=== PATIENT | female | born 2005 | race African-American/Black ===

== ENCOUNTER 2025-02-03 17:02 | Emergency (ER) | payer OTHER, SELFPAY ==
[2025-02-03 17:30] VITALS: BP 103/59; PULSE 76; RESP 18; TEMP 37; O2SAT 97; BMI 28.1
--- NOTE | 2025-02-03 17:47 | ED_ITS ---
HPI - Abdominal Pain General Chief Complaint: Abdominal Pain Stated Complaint: Abdominal Pain Time Seen by Provider: 02/03/25 17:47 History of Present Illness HPI narrative: patient started to have pain in the RLQ and last Sunday. then went into in [place] and then went to ED had blood test and imaging. Found some swelling and small cysts unsure what called. concerned of appy wants a second opinion. hard to walk and some radiation of the pain into the lower back. was given Oxycodone for pain and last taken yesterday and today taken Motrin with no relief of pain. had diarrhea x2 each day last on Sunday and none since. 19-year-old young woman presenting to the emergency department with concern of lower right abdominal pain. Apparently was seen 6 and 7 days ago in ED in urgent care in the area. Had blood work and CT scan and what sounds like pelvic ultrasound. She continues to have pain in the right lower abdomen. Did have diarrhea couple of times 8 days ago which she suspects might be related to dairy. She think she has developed dairy allergy. She has vomited intermittently with continued nausea over this last week. Did vomit yesterday when she tried to eat something but none since. Has not had any fever. It is unclear after conversation what actual diagnosis was but this described as some swelling but not quite appendicitis. Mesenteric adenitis is not familiar. Sounds like may have had a small ovarian cyst. She also notes history of ir regular menses but had her last. At the end of December finishing on the and then bled after her 2nd visit this last week but did want to go back in and be told once again that there was nothing to do. This was unusually heavy bleeding and resolved yesterday or 2 days ago but has been spotting a little bit. No fever. Is experiencing some frequency which she would blame on the fluids that she has been pushing. Denies being sexually active. Related Data Previous Rx's ?Medication ?Instructions ?Recorded hydrocodone 5 mg-acetaminophen 325 1 - 2 tab PO TID DE N pain, 02/03/25 mg tablet moderate #15 tabs ondansetron HCl 4 mg tablet 4 mg PO Q6H PRN nausea and 02/03/25 vomiting #12 tabs Allergies Allergy/AdvReac Type Severity Reaction Status Date / Time honey Allergy Intermediate Verified 02/03/25 17:46 sugar cookies with frosting Allergy Intermediate Uncoded 02/03/25 17:46 Review of Systems Status of ROS Reports: 6 or more systems reviewed and unremarkable except as noted in History and below Exam Narrative: Exam Narrative: Pleasant. Mouth looks little dry. She does say she has been pushing fluids. Heart in regular rate and rhythm. Lungs are clear. She is sore to palpation in the low back, right greater than SI joint in particular. Abdomen is soft and moderately tender without peritoneal signs in the right adnexal/low abdomen. Lungs are clear. Does continue with some pain across the low pelvis/suprapubic area however. Extremities are without edema. Const: Vital Signs, click to edit/add: Vital Signs - 24 hr 02/03/25 17:30 Temperature 98.6 F Pulse Rate [Pulse Oximeter] 76 Respiratory Rate 18 Blood Pressure [Ri ght Upper Arm] 103/59 L Pulse Oximetry 97 Oxygen Delivery Me thod Room Air Documenting provider has reviewed patient's vital signs: yes Course Vital Signs Vital signs: Initial Vital Signs Temperature 98.6 F 02/03/25 17:30 Temperature Source Temporal Artery Scan 02/03/25 17:30 Pulse Rate 76 02/03/25 17:30 Respiratory Rate 18 02/03/25 17:30 Blood Pressure 103/59 L 02/03/25 17:30 Blood Pressure Mean 73 02/03/25 17:30 Blood Pressure Position Sitting 02/03/25 17:30 Pulse Oximetry 97 02/03/25 17:30 Oxygen Delivery Method Room Air 02/03/25 17:30 Vital Signs Temperature 98.6 F 02/03/25 17:30 Pulse Rate 76 02/03/25 17:30 Respiratory Rate 18 02/03/25 17:30 Blood Pressure 103/59 L 02/03/25 17:30 Pulse Oximetry 97 02/03/25 17:30 Oxygen Delivery Method Room Air 02/03/25 17:30 Temperature 98.6 F 02/03/25 17:30 Pulse Rate 76 02/03/25 17:30 Respiratory Rate 18 02/03/25 17:30 Blood Pressure 103/59 L 02/03/25 17:30 Pulse Oximetry 97 02/03/25 17:30 Oxygen Delivery Method Room Air 02/03/25 17:30 Medications Administered Medications: Discontinued Medications Generic Name Dose Route Start Last Admin Trade Name Freq PRN Reason Stop Dose Admin Sodium Chloride 1,000 mls @ 1,000 mls/hr 02/03/25 18:14 02/03/25 19:03 0.9 % Sodium Chloride 1000 Ml IV 02/03/25 19:13 Not Given .Q1H ONE Ketorolac Tromethamine 30 mg 02/03/25 18:14 02/03/25 19:03 Ketorolac 30 Mg/Ml Inj IVP 02/03/25 18:15 Not Given ONCE ONE Ketorolac Tromethamine 10 mg 02/03/25 18:45 02/03/25 19:02 Ketorolac 10 Mg Tablet PO 02/03/25 18:46 10 mg ONCE ONE Administration Ondansetron HCl 4 mg 02/03/25 18:14 02/03/25 19:03 Ondansetron 2 Mg/Ml Inj IVP 02/03/25 18:15 Not Given ONCE ONE Ondansetron HCl 4 mg 02/03/25 18:45 02/03/25 19:02 Ondansetron Odt 4 Mg Tab PO 02/03/25 18:46 4 mg ONCE ONE Administration MDM - Abdominal Pain MDM Narrative Medical decision making narrative: Initially diagnosis seems unclear. Whether not this was an ovarian cyst or diverticulitis or constipation or enteritis with story otherwise inconsistent I think for appendicitis, we were able to obtain records from area emergency department. Reviewing this imaging able to confirm mesenteric adenitis. In addition it appears she does have sacroiliac joint area pain today. Not sure that further imaging is needed. Would check standard labs for reason to workup further. She would also appreciate IV fluids and some pain management. Obtain records show that on 01/27/2025 did have unremarkable pelvic ultrasound. And CT scan of abdomen pelvis with IV contrast showing a mild right lower quadrant mesenteric adenitis. I think this diagnosis is not inconsistent with her presentation here today as well. I did spend some time in conversation trying to explain, clarifies this diagnosis and expectations for timing of resolution, concerning signs and symptoms. Is given normal saline, Zofran and ketorolac. On reassessment is significantly improved. Stable vitals. Reassuring labs. See patient discharge plan for further discussion Continue to stay well-hydrated. I am prescribing you some [place] for pain as discussed. Each tablet contain 5 mg of hydrocodone and 325 mg of acetaminophen (unfortunately this is not available in our [facility] and so I have sent this into your pharmacy) Also prescribing Zofran for nausea from [facility]. Consider taking 400-600 mg of ibuprofen 3 times daily, regularly over the next 4 days or so. Be seen for uncontrolled pain, new fever, pain lasting longer than 12 days or so. See handout for exercises that you can work on daily for this sacroiliac joint pain. I would discuss this with physical therapy. Also lidocaine patches can be helpful placed over this area of discomfort in your back. Medical Records Attestation: I reviewed the patient's medical records. Lab Data Attestation: I reviewed the patient's lab results. Labs: Lab Results 02/03/25 02/03/25 02/03/25 Range/Units 17:49 17:50 18:52 WBC 6.45 (4.50-11.00) K/uL RBC 5.01 (4.00-5.20) m/uL Hgb 13.7 (12.0-16.0) gm/dL Hct 40.3 (33.0-51.0) % MCV 80 (80-100) fL MCH 27 (26-34) pg MCHC 34 (32-36) gm/dL RDW Coeff of [place] 13.1 (11.5-15.5) % Plt Count 296 (140-440) K/uL Neut % (Auto) 45.8 (42.0-72.0) % Lymph % (Auto) 44.2 H (20-44) % [place] % (Auto) 8.7 (0.0-11.0) % Eos % (Auto) 0.8 (0.0-7.0) % Baso % (Auto) 0.3 (0.0-3.0) % Neut # (Auto) 2.96 (1.7-7.0) K/uL Lymph # (Auto) 2.90 (0.90-2.90) K/uL [place] # (Auto) 0.60 (0.00-0.90) K/UL Eos # (Auto) 0.05 (0.00-0.50) K/uL Baso # (Auto) 0.02 (0.00-0.30) K/uL Abs Immat Gran (auto) 0.01 (0.00-0.30) K/uL Imm/Tot Granulo (auto) 0.2 % C-Reactive Protein < 0.5 L (0.5-1.0) mg/dL Urine Color Yellow (Yellow) Urine Appearance Clear (Clear) Urine pH 6.0 (5.0-8.5) Ur Specific [place] 1.020 (1.000-1.030) Urine Protein Negative (Negative) Urine Glucose (UA) Negative (Negative) Urine Ketones 1+ A (Negative) Urine Blood Trace-lysed A (Negative) Urine Nitrite Negative (Negative) Urine Bilirubin Negative (Negative) Urine Urobilinogen 0.2 (0.2-1.0) Ur Leukocyte Esterase Trace A (Negative) Urine HCG, Qual Negative (Negative) Discharge Plan Discharge Clinical Impression: Abdominal pain, Mesenteric adenitis, Sacroiliac joint pain Patient Disposition: Home, Self-Care Condition: Improved Instructions: Mesenteric Adenitis (ED) Additional Instructions: Continue to stay well-hydrated. I am prescribing you some [place] for pain as discussed. Each tablet contain 5 mg of hydrocodone and 325 mg of acetaminophen (unfortunately this is not available in our [facility] and so I have sent this into your pharmacy) Also prescribing Zofran for nausea from [facility]. Consider taking 400-600 mg of ibuprofen 3 times daily, regularly over the next 4 days or so. Be seen for uncontrolled pain, new fever, pain lasting longer than 12 days or so. See handout for exercises that you can work on daily for this sacroiliac joint pain. I would discuss this with physical therapy. Also lidocaine patches can be helpful placed over this area of discomfort in your back. Prescriptions: New hydrocodone-acetaminophen 5-325 mg tablet 1 - 2 tab PO TID PRN (Reason: pain, moderate) Qty: 15 0RF ondansetron HCl 4 mg tablet 4 mg PO Q6H PRN (Reason: nausea and vomiting) Qty: 12 1RF Follow Up/Referrals: Provider,Not a Local [Primary Care Provider, Family Practice] Stand Alone Forms: MyHealth Info Instructions
[2025-02-03 18:10] LABS: Appearance Urine Clear (Clear)
--- OUTSIDE RECORDS SUMMARY | 2025-02-03 18:28 | XMS_ITS | Clinical Summary ---
Author Organization [facility] Address [address] [place] [id number] Care Team Providers Care Yard Spotter Name Role Phone Mikayla Stubbs NP Primary Care Provider Allergies Active AllergyReactionsCriticalityNoted DateCommentsHoneyRash,Throat Swelling/GepodkuOptd06/13/2024Unlisted Allergen (Include Detail In Comments)Rash 07/11/2018 Mee; iced sugar cookies (swelling of lips and eyes) Medications MedicationSigDispense QuantityRefillsLast FilledStart DateEnd DateStatus Differin 0.3 % topical gel APPLY A THIN LAYER TO FACE TWICE WEEKLY INCREASING TO EVERY OTHER NIGHT TOLERATED. FOLLOW WITH GENTLE UHFCAQKCMJB01/31/2022ctive clindamycin 1% (CLEOCIN-T) 1 % lotion APPLY THIN LAYER TO AFFECTED AREA ON BODY 1-2X DAILY01/06/2022ctive sulfacetamide-sulfur , 10 - 5%, (SULFACET-R) 10-5 % (w/w) clsr WASH TO AFFECTED AREA OF BODY ONCE DAILY LATHER AND LET SIT FOR SEVERAL MINUTES BEFORE NZCMCGR5201/06/2022ctive ketoconazole 2% shampoo (NIZORAL) 2 % shampoo WASH TO AFFECTED AREA ON SCALP AND FACE 2-3 TIMES WEEKLY IN THE SHOWER LATHER AND LET SIT FOR SEVERAL MINUTES BEFORE UIOQOAP4101/06/2022ctive azelaic acid (FINACEA) 15 % topical gel APPLY A THIN LAYER TO FACE 1-2 TIMES DAILY IN THE OGJRYUT7301/09/2023ctive doxycycline monohydrate (MONODOX) 100 mg capsule TAKE 1 CAPSULE BY MOUTH TWICE DAILY WITH FOOD, WATER & SUPPLEMENT WITH A YYSUWGMYS52/28/2023Active omeprazole (PRILOSEC) 20 mg Delayed-Release capsule Indications:Chronic GERDTake 1 Capsule (20 mg) by mouth once daily before a meal. 30 Capsule 4:53 PM CST01/23/2023ctive omeprazole (PRILOSEC) 20 mg Delayed-Release capsule Indications:H. pylori infectionTake 1 Capsule (20 mg) by mouth two times daily before meals. 60 Capsule 04/02/2023 11:47 AM CST03/12/2023ctive hydrOXYzine HCL (ATARAX) 25 mg tablet Indications:AnxietyTake 1-2 Tablets (25-50 mg) by mouth 3 times daily if needed for Anxiety. 30 Tablet 08/06/2023ctive ondansetron (ZOFRAN ODT) 4 mg disintegrating tablet Indications:Nausea and vomiting, unspecified vomiting typePlace 2 Tablets (8 mg) on the tongue two times daily. 12 Tablet 12/26/2023ctive diphenhydrAMINE 25 mg capsule Indications:Allergic reaction, initial encounterTake 2 Capsules (50 mg) by mouth every 4 hours. 30 Capsule 5Active famotidine 40 mg tablet Indications:Allergic reaction, initial encounterTake 1 Tablet (40 mg) by mouth once daily. 14 Tablet 5Active rx oxyCODONE 5 mg (ROXICODONE) tablet (ED DC MED) Indications:Mesenteric adenitisTake 1 Tablet (5 mg) by mouth every 6 hours if needed for Pain. 4 Tablet 5Active oxyCODONE (ROXICODONE) 5 mg immediate release tablet Indications:Mesenteric adenitisTake 1 Tablet (5 mg) by mouth every 4 hours if needed for Pain. 10 Tablet 5Active Active Problems ProblemNoted DateDiagnosed DateChondromalacia patellae of right knee02/19/2023 Right patellar subluxation, initial gsoeaemxc55/08/2024dolescent idiopathic scoliosis of thoracolumbar nggqpp5101/29/2018 Overview (01/29/2018): Recommend recheck xray in 6 months 07/2018 Chronic GERD01/28/2018Macromastia Encounters DateTypeDepartmentCare LqsxGorstwfofva74/17/2025 4:48 PM DIRECTOR LEARNING AND DEVELOPMENT - 01/28/2025 5:17 PM CSTEmergency [facility] [address] [place] [address] Destin Newman MD Mesenteric adenitis (Primary Dx) Discharge Disposition: Home Self Care01/28/20256659Olmylp93/16/2025 5:26 PM DIRECTOR LEARNING AND DEVELOPMENT - 01/27/2025 8:29 PM CSTEmergency [facility] [address] [place] [address] Denia Ahmadi PA Mesenteric adenitis (Primary Dx) Discharge Disposition: Home Self Care01/27/2025 4:25 PM CSTOffice Visit [facility] [address] [place] [address] Jayda Holguin NP Abdominal Pain01/27/2025Travelfrom Last 3 Months Immunizations ImmunizationAdministration DatesNext DueCOVID-19 VACCINE SPIKEVAX (MODERNA 50MCG/0.5ML) 12YO+ PFS4COVID-19 vaccine (Pfizer-BioNTech 30mcg/0.3mL) PF, MDV10/29/2020,10/08/2020HPV 9 (Gardasil 9)01/14/2018,07/28/2016Hepatitis A (Peds)01/03/2021,03/29/2020Hepatitis B (Peds)08/23/2015,02/15/2015,11/03/2014 Inactivated Polio Bojyfzv7608/23/2015,11/03/2014Influenza, RON237/, 12/15/2019,11/07/2018,01/14/2018,02/16/2016,11/03/2014MENINGOCOCCAL VACCINE 2 VIAL 2MO-55YO (MENVEO)12/15/2019,11/03/2014MMR02/15/2015,10/20/2014Oral Polio Cgwgvtl4901/26/2014Td (Age >=7 Years)08/23/2015,02/15/2015Tdap10/20/2014Varicella Aghrqfp6502/15/2015,10/20/2014 Family History Medical HistoryRelationNameCommentsGood HealthFatherDiabetesMotherHeart attack Mother03/2022HypertensionMotherGood HealthSister 1Good HealthSister 2RelationName StatusCommentsFatherAliveMotherAliveSister 1AliveSister 2Alive Social History Tobacco UseTypesPacks/DayYears UsedDateSmoking Tobacco: NeverSmokeless Tobacco: Never Tobacco Cessation:Counseling Given: Yes Alcohol UseStandard Drinks/WeekCommentsNo0 (1 standard drink = 0.6 oz pure alcohol)PHQ-2AnswerDate RecordedPHQ-2 TOTAL [id number] Connections AnswerDate RecordedFrequency of Communication with Friends and Dhekfs327 Financial Resource StrainAnswerDate RecordedDifficulty of Paying Living Expenses ifficulty of Paying Living ExpensesNot on file07/28/2021Food InsecurityAnswerDate RecordedWorried About Running Out of Food in the Last Year1 07/28/2021Transportation NeedsAnswerDate RecordedLack of Transportation (Medical)Housing StabilityAnswerDate RecordedUnable to Pay for Housing in the Last Usdr475Interpersonal SafetyAnswerDate RecordedAre you being hit, kicked, pushed or yelled at (see row info)?No01/28/2025 Interpersonal Safety Abuse 12 - 18Not on file01/28/2025Interpersonal Safety Ambulatory VulnerabilityNot on file01/28/2025CommentsNoSex and Gender InformationValueDate RecordedSex Assigned at VshftFybrva84/12/2025 3:54 PM CDT Legal NipMiwfhq06/24/2015 5:09 PM CDTGender CtyvscykSpkvex81/12/2025 3:54 PM CDT Sexual UwnclqmrwpfLrxqhupj65/12/2025 3:54 PM CDT Last Filed Vital Signs Vital SignReadingTime TakenCommentsBlood Yylffkgf087/8701/28/2025 4:52 PM DIRECTOR LEARNING AND DEVELOPMENT Bcjwu880201/28/2025 4:51 PM YNJKmsgplzkjll23.9 ??C (98.5 ??F)01/28/2025 4:51 PM CSTRespiratory Zvfs141903/31/2024 4:51 PM CSTOxygen Tgkldfdkwr54%01/28/2025 4:51 PM CSTInhaled Oxygen Concentration--Blbcks38 kg (161 lb)01/28/2025 4:51 PM DIRECTOR LEARNING AND DEVELOPMENT Rlihru478 cm (5' 3)01/28/2025 4:51 PM CSTBody Mass Index28.5201/28/2025 4:51 PM DIRECTOR LEARNING AND DEVELOPMENT Plan of Treatment Health MaintenanceDue DateLast DoneCommentsDepression screening for age 12+ /, 06/13/2022, 06/12/2022, Additional history existsPap test for age 21-OVID-19 vaccine series ( season)2024 03/06/2023, 10/29/2020, 10/08/2020Influenza Vaccine (#1)5003/06/2023, 12/15/2019, 11/07/2018, Additional history existsBMI (ht and wt on same day) for age 18+5010/16/2023, 07/27/2023, 01/23/2023, Additional history exists Tetanus tmujxud91/11/168133/12/2015, 02/15/2015, 10/20/2014HIV for age 15-65 Oqefpxnrm14/31/2015Hepatitis B series for 19+Ttwrkhexg28/11/2016, 02/15/2015, 11/03/2014HPV series for age 9-12Zmwrsqequ87/03/2018, 07/28/2016Meningococcal series for age 11-58Jhufkxqtx96/02/2020, 11/03/2014Hepatitis C screening for age 18-66Euzztchtm60/10/2023Pneumococcal series for age 6-49Aged OutNo longer eligible based on patient's age to complete this topic Procedures Procedure NamePriorityDate/TimeAssociated DiagnosisCommentsCT ABDOMEN PELVIS W STAT103/30/2024 7:38 PM DIRECTOR LEARNING AND DEVELOPMENT US PELVIS COMPLETE ZELDLT05/ 6:50 PM DIRECTOR LEARNING AND DEVELOPMENT URINALYSIS DIMMQPFXLZRMLIF39/16/2025 5:50 PM DIRECTOR LEARNING AND DEVELOPMENT IGCRMDTUA76/16/2025 5:50 PM DIRECTOR LEARNING AND DEVELOPMENT UA W/ SEDIMENT EXAM REFLEXED PER QEIDPEMVWIEY31/16/2025 5:50 PM DIRECTOR LEARNING AND DEVELOPMENT RED CELL UJHDZQECDYMGHU90/16/2025 5:37 PM DIRECTOR LEARNING AND DEVELOPMENT PLATELET KPHPQGYRZCHT23/16/2025 5:37 PM DIRECTOR LEARNING AND DEVELOPMENT MANUAL DEPRFWBGKJSLFKMR31/16/2025 5:37 PM DIRECTOR LEARNING AND DEVELOPMENT CBC WITH AUTO LBAVPUXALPURFLRP25/16/2025 5:37 PM DIRECTOR LEARNING AND DEVELOPMENT CKLVTNRYKD62/16/2025 5:37 PM DIRECTOR LEARNING AND DEVELOPMENT HEPATIC FUNCTION ZNDODUKYN21/16/2025 5:37 PM DIRECTOR LEARNING AND DEVELOPMENT BASIC METABOLIC STSBAZPXJ65/16/2025 5:37 PM DIRECTOR LEARNING AND DEVELOPMENT CBC WITH AUTO KOJLXAGWKQVFJTDS75/16/2025 5:37 PM DIRECTOR LEARNING AND DEVELOPMENT LC HCV ANTIBODY RFX TO QUANT SRSMdoqwio31/10/2023 3:08 PM DIRECTOR LEARNING AND DEVELOPMENT Need for hepatitis C screening test ANTI HIV 1/5Mrjozfz49/31/2015 10:42 AM CDT WCC (well child check) from Last 3 Months or Most Recently Relevant to Health Maintenance Results * CT ABDOMEN PELVIS W (01/27/2025 7:38 PM DIRECTOR LEARNING AND DEVELOPMENT)Anatomical RegionLaterality ModalityAbdomen, Pelvis, AORTA, LIVER, SPLEENComputed TomographySpecimen (Source)Anatomical Location / LateralityCollection Method / VolumeCollection TimeReceived Time01/27/2025 7:48 PM DIRECTOR LEARNING AND DEVELOPMENT Impressions 01/27/2025 7:48 PM DIRECTOR LEARNING AND DEVELOPMENT Mild right lower quadrant mesenteric adenitis. Please note that all CT scans at this facility use dose modulation, iterative reconstruction, and/or weight-based dosing when appropriate to reduce radiation dose to as low as reasonably achievable. Dictated by Hiral Albert MD @ 01/27/2025 7:48:33 PM (Electronically Signed) Narrative 01/27/2025 7:48 PM DIRECTOR LEARNING AND DEVELOPMENT For Patients: As a result of the Cures Act, medical imaging exams and procedure reports are released immediately into your electronic medical record. You may view this report before your referring provider. If you have questions, please contact your health care provider. INDICATION: Right lower quadrant abdominal pain. COMPARISON: 04/08/2021 CT abdomen pelvis, ultrasound pelvis 01/27/2025 TECHNIQUE: CT of the abdomen and pelvis with intravenous contrast. Multiplanar axial, coronal, and sagittal reformats were reconstructed. Contrast: 100 mL Omnipaque 350. FINDINGS: Lung bases: Normal. Liver: Normal. No mass. Gallbladder and bile ducts: Normal gallbladder. No bile duct dilation. Pancreas: Normal. Spleen: Small splenule. Normal spleen size. Adrenal glands: Normal. Kidneys: Normal parenchyma. No cyst or solid mass. No calculi. No urinary tract dilation. Urinary bladder: Normal. Pelvis: Physiologic appearance of the uterus and both ovaries, including a small right ovarian corpus luteum cyst. Vessels: Normal. Bowel: No dilated or inflamed bowel. Normal appendix. Moderate stool burden. Lymph nodes: There are few clustered prominent lymph nodes in the right lower quadrant mesentery. The largest lymph node measures 1.4 x 1.0 cm on series 2, image 123. Peritoneum: No ascites. Abdominal wall: No hernia. Bones: No fractures. No focal worrisome bone lesions. Procedure Note Hiral Albert MD - 01/27/2025 For Patients: As a result of the Cures Act, medical imagingexams and procedure reports are released immediately into your electronicmedical record. You may view this report before your referring provider.If you have questions, please contact your health care provider. INDICATION: Right lower quadrant abdominal pain. COMPARISON: 04/08/2021 CT abdomen pelvis, ultrasound pelvis 01/27/2025 TECHNIQUE: CT of the abdomen and pelvis with intravenous contrast. Multiplanar axial, coronal, and sagittal reformats were reconstructed. Contrast: 100 mL Omnipaque 350. FINDINGS: Lung bases: Normal. Liver: Normal. No mass. Gallbladder and bile ducts: Normal gallbladder. No bile duct dilation. Pancreas: Normal. Spleen: Small splenule. Normal spleen size. Adrenal glands: Normal. Kidneys: Normal parenchyma. No cyst or solid mass. No calculi. No urinarytract dilation. Urinary bladder: Normal. Pelvis: Physiologic appearance of the uterus and both ovaries, including asmall right ovarian corpus luteum cyst. Vessels: Normal. Bowel: No dilated or inflamed bowel. Normal appendix. Moderate stoolburden. Lymph nodes: There are few clustered prominent lymph nodes in the rightlower quadrant mesentery. The largest lymph node measures 1.4 x 1.0 cm onseries 2, image 123. Peritoneum: No ascites. Abdominal wall: No hernia. Bones: No fractures. No focal worrisome bone lesions. IMPRESSION: Mild right lower quadrant mesenteric adenitis. Please note that all CT scans at this facility use dose modulation,iterative reconstruction, and/or weight-based dosing when appropriate toreduce radiation dose to as low as reasonably achievable. Dictated by Hiral Albert MD @ 01/27/2025 7:48:33 PM (Electronically Signed) Authorizing ProviderResult TypeResult StatusAnna Sandra Ahmadi PACTFinal Result * US PELVIS COMPLETE TA (01/27/2025 6:50 PM DIRECTOR LEARNING AND DEVELOPMENT)Anatomical RegionLaterality ModalityPelvisUltrasoundSpecimen (Source)Anatomical Location / Laterality Collection Method / VolumeCollection TimeReceived Time01/27/2025 6:54 PM DIRECTOR LEARNING AND DEVELOPMENT Narrative 01/27/2025 6:54 PM DIRECTOR LEARNING AND DEVELOPMENT For Patients: As a result of the Century Cures Act, medical imaging exams and procedure reports are released immediately into your electronic medical record. You may view this report before your referring provider. If you have questions, please contact your health care provider. Indication: Pain/tenderness Technique: Ultrasound pelvis transabdominal. Real-time sonographic images with spectral and color Doppler imaging of the ovaries were obtained. Comparison: Pelvic ultrasound 08/24/2021. Findings: Uterus: Size: 6.5 x 4.9 x 4.0 cm. Mass: No. Endometrium: Transvaginal imaging was performed to better evaluate the endometrium. ?? Thickness: 2 mm. ?? Mass or fluid collection: No. Right ovary: Size: 2.7 x 3.6 x 2.0 cm. Mass: No. Blood flow: Normal arterial and venous blood flow. Left ovary: Not visualized. Cul-de-sac and adnexa: Significant free Fluid: No. Mass: No. Impression: Unremarkable sonographic appearance of the uterus, endometrium, and right ovary. The left ovary is not visualized. Dictated by Tara Trevizo MD @ 01/27/2025 6:54:47 PM (Electronically Signed) Procedure Note Tara Trevizo MD - 01/27/2025 For Patients: As a result of the Cures Act, medical imagingexams and procedure reports are released immediately into your electronicmedical record. You may view this report before your referring provider.If you have questions, please contact your health care provider. Indication: Pain/tenderness Technique: Ultrasound pelvis transabdominal. Real-time sonographic images withspectral and color Doppler imaging of the ovaries were obtained. Comparison: Pelvic ultrasound 08/24/2021. Findings: Uterus: Size: 6.5 x 4.9 x 4.0 cm. Mass: No. Endometrium: Transvaginal imaging was performed to better evaluate the endometrium. Thickness: 2 mm. Mass or fluid collection: No. Right ovary: Size: 2.7 x 3.6 x 2.0 cm. Mass: No. Blood flow: Normal arterial and venous blood flow. Left ovary: Not visualized. Cul-de-sac and adnexa: Significant free Fluid: No. Mass: No. Impression: Unremarkable sonographic appearance of the uterus, endometrium, and rightovary. The left ovary is not visualized. Dictated by Tara Trevizo MD @ 01/27/2025 6:54:47 PM (Electronically Signed) Authorizing ProviderResult TypeResult StatusAnna Sandra Prenevost PAUSFinal Result * URINALYSIS MICROSCOPIC (01/27/2025 5:50 PM DIRECTOR LEARNING AND DEVELOPMENT)ComponentValueRef RangeTest MethodAnalysis TimePerformed AtPathologist SuanifjtzIGX6-64-6, None Seen /HPF 01/27/2025 6:13 PM [facility] WCOKDCQHZGTGK7-78-9, 3-5, None Seen /HPF01/27/2025 6:13 PM [facility] LABORATORYBACTERIAFew None Seen, Rare, Few Bacteria/HPF01/27/2025 6:13 PM [facility] LABORATORYEPITHELIAL CELLSFewNone Seen, Few Epi/HPF01/27/2025 6:13 PM [facility] CNHKGPTPAAQwdjePrwmoxu93/16/2025 6:13 PM [facility] LABORATORYSpecimen (Source)Anatomical Location / LateralityCollection Method / VolumeCollection TimeReceived TimeUrineURINE SPECIMEN / UnknownNon-Blood / Jveyboz3901/27/2025 5:50 PM CST01/27/2025 5:53 PM DIRECTOR LEARNING AND DEVELOPMENT Narrative Authorizing ProviderResult TypeResult StatusAnna Sandra Prenevost PAURINEFinal ResultPerforming OrganizationAddressCity/State/ZIP CodePhone Number [facility] [address] [place] [address] * (ABNORMAL) UA W/ SEDIMENT EXAM REFLEXED PER CRITERIA (01/27/2025 5:50 PM DIRECTOR LEARNING AND DEVELOPMENT) ComponentValueRef RangeTest MethodAnalysis TimePerformed AtPathologist SignatureCOLORYellowYellow Color01/27/2025 6:11 PM [facility] LABORATORYCLARITYClearClear Klfeakm4001/27/2025 6:11 PM [facility] LABORATORYSPECIFIC GRAVITY,URINE1.0101.010, 1.015, 1.020, 1.025 01/27/2025 6:11 PM [facility] LABORATORYPH,URINE6.06.0, 7.0, 8.0, 5.5, 6.5, 7.5, 8. 6:11 PM [facility] LABORATORYUROBILINOGEN,QUALITATIVENormalNormal EU/dl01/27/2025 6:11 PM [facility] LABORATORYPROTEIN, URINENegativeNegative mg/dL 01/27/2025 6:11 PM [facility] LABORATORYGLUCOSE, URINE NegativeNegative mg/dL01/27/2025 6:11 PM [facility] LABORATORYKETONES,URINENegativeNegative mg/dL01/27/2025 6:11 PM [facility] LABORATORYBILIRUBIN,MKXJOZanxtazuNrqvkcco40/16/2025 6:11 PM [facility] LABORATORYOCCULT BLOOD,URINENegativeNegative 01/27/2025 6:11 PM [facility] LABORATORYNITRITENegative Aylxijmq19/16/2025 6:11 PM [facility] LABORATORYLEUKOCYTE ESTERASETrace(A)Uknelrni08/16/2025 6:11 PM [facility] LABORATORYSpecimen (Source)Anatomical Location / LateralityCollection Method / VolumeCollection TimeReceived TimeUrineURINE SPECIMEN / UnknownNon-Blood / Tjrhfji0201/27/2025 5:50 PM CST01/27/2025 5:53 PM DIRECTOR LEARNING AND DEVELOPMENT Narrative Authorizing ProviderResult TypeResult StatusDenia Sandra CazaresbeverlyNorth Adams Regional HospitalURINEFinal ResultPerforming OrganizationAddressCity/State/ZIP CodePhone Number [facility] [address] [place] [address] * URINE (01/27/2025 5:50 PM DIRECTOR LEARNING AND DEVELOPMENT)ComponentValueRef RangeTest Method Analysis TimePerformed AtPathologist SignaturePREGNANCY,URINENegativeNegative 01/27/2025 5:57 PM [facility] LABORATORYSpecimen (Source) Anatomical Location / LateralityCollection Method / VolumeCollection Time Received TimeUrineURINE SPECIMEN / UnknownNon-Blood / Gmyzlnk6801/27/2025 5:50 PM CST01/27/2025 5:53 PM DIRECTOR LEARNING AND DEVELOPMENT Narrative Authorizing ProviderResult TypeResult StatusDenia Sandra Cazaresalyssia AKURINEFinal ResultPerforming OrganizationAddressCity/State/ZIP CodePhone Number [facility] [address] [place] [address] * CBC WITH AUTO DIFFERENTIAL (01/27/2025 5:37 PM DIRECTOR LEARNING AND DEVELOPMENT)ComponentValueRef RangeTest MethodAnalysis TimePerformed AtPathologist SignatureWHITE BLOOD COUNT7.54.5 - 11.0 thou/cu mm01/27/2025 6:17 PM [facility] LABORATORYRED BLOOD COUNT4.744.00 - 5.20 mil/cu mm01/27/2025 6:17 PM [facility] FMDAQOHDUIPIGSJTUNED20.912.0 - 16.0 g/dL01/27/2025 6:17 PM [facility] BOTJXTQWEBUHADLUQLYB79.033.0 - 51.0 %01/27/2025 6:17 PM [facility] GCYQKOSJESBBL9885 - 100 fL01/27/2025 6:17 PM [facility] DAUKGPYEKGXCC38.226.0 - 34.0 pg01/27/2025 6:17 PM [facility] FLKXAPURROUUAS82.932.0 - 36.0 g/dL01/27/2025 6:17 PM [facility] PMTZURQDHGLTK93.511.5 - 15.5 %01/27/2025 6:17 PM [facility] LABORATORYPLATELET LXOJK124139 - 440 thou/cu mm 01/27/2025 6:17 PM [facility] FGBVNHZDHUICZ90.66.5 - 11.0 fL 01/27/2025 6:17 PM [facility] LABORATORYSpecimen (Source) Anatomical Location / LateralityCollection Method / VolumeCollection Time Received TimeBloodBLOOD SPECIMEN / UnknownVenipuncture / Pbrxqac9501/27/2025 5:37 PM CST01/27/2025 5:40 PM DIRECTOR LEARNING AND DEVELOPMENT Narrative Authorizing ProviderResult TypeResult StatusAnna Sandra Prenevost PAHEMATOLOGY Final ResultPerforming OrganizationAddressCity/State/ZIP CodePhone Number [facility] [address] [place] [address] * (ABNORMAL) RED CELL MORPHOLOGY (01/27/2025 5:37 PM DIRECTOR LEARNING AND DEVELOPMENT)ComponentValueRef Range Test MethodAnalysis TimePerformed AtPathologist SignatureELLIPTOCYTESFew 01/27/2025 6:17 PM [facility] LABORATORYRBC COMMENTPresent(A) RBC morphology appears normal, RBC morphology within normal limits for newborns.01/27/2025 6:17 PM [facility] LABORATORYLARGE RHNVIEKQXGachaue10/16/2025 6:17 PM [facility] LABORATORYWBC REACTIVE GMGTAJSyvklwn64/16/2025 6:17 PM [facility] LABORATORYSpecimen (Source)Anatomical Location / LateralityCollection Method / VolumeCollection TimeReceived TimeBloodBLOOD SPECIMEN / UnknownVenipuncture / Ifxutmf1401/27/2025 5:37 PM CST01/27/2025 5:40 PM DIRECTOR LEARNING AND DEVELOPMENT Narrative Authorizing ProviderResult TypeResult StatusDenia Cazaresmercy orthopedic hospital PAHEMATOLOGY Final ResultPerforming OrganizationAddressCity/State/ZIP CodePhone Number [facility] [address] [place] [address] * PLATELET ESTIMATE (01/27/2025 5:37 PM DIRECTOR LEARNING AND DEVELOPMENT)ComponentValueRef RangeTest Method Analysis TimePerformed AtPathologist SignaturePLATELET ESTIMATEAdequate Adequate, No /16/2025 6:17 PM [facility] Specimen (Source)Anatomical Location / LateralityCollection Method / Volume Collection TimeReceived TimeBloodBLOOD SPECIMEN / UnknownVenipuncture / Gsrwcqv1101/27/2025 5:37 PM CST01/27/2025 5:40 PM DIRECTOR LEARNING AND DEVELOPMENT Narrative Authorizing ProviderResult TypeResult StatusDenia Sandra Cazaresmercy orthopedic hospital PAHEMATOLOGY Final ResultPerforming OrganizationAddressCity/State/ZIP CodePhone Number [facility] [address] [place] [address] * (ABNORMAL) MANUAL DIFFERENTIAL (01/27/2025 5:37 PM DIRECTOR LEARNING AND DEVELOPMENT)ComponentValueRef Range Test MethodAnalysis TimePerformed AtPathologist Signature% JQINTGBNTGQ87.0% 01/27/2025 6:17 PM [facility]% FNVGDEUWZKL67.0% 01/27/2025 6:17 PM [facility]% MONOCYTES5.0% 01/27/2025 6:17 PM [facility]% EOSINOPHILS0.0% 01/27/2025 6:17 PM [facility]% BASOPHILS0.0% 01/27/2025 6:17 PM [facility] LABORATORYNEUTROPHILS ABSOLUTE 3.11.7 - 7.0 thou/cu mm01/27/2025 6:17 PM [facility] LABORATORYLYMPHOCYTES ABSOLUTE4.1(H)0.9 - 2.9 thou/cu mm01/27/2025 6:17 PM DIRECTOR LEARNING AND DEVELOPMENT [facility] LABORATORYMONOCYTES ABSOLUTE0.4<0.9 thou/cu mm 01/27/2025 6:17 PM [facility] LABORATORYEOSINOPHILS ABSOLUTE 0.0<0.5 thou/cu mm01/27/2025 6:17 PM [facility] BASOPHILS ABSOLUTE0.0<0.3 thou/cu mm01/27/2025 6:17 PM [facility] LABORATORYSpecimen (Source)Anatomical Location / LateralityCollection Method / VolumeCollection TimeReceived TimeBloodBLOOD SPECIMEN / Unknown Venipuncture / Tythnkg3301/27/2025 5:37 PM CST01/27/2025 5:40 PM DIRECTOR LEARNING AND DEVELOPMENT Narrative Authorizing ProviderResult TypeResult StatusDenia Cevallospinon health center PAHEMATOLOGY Final ResultPerforming OrganizationAddressCity/State/ZIP CodePhone Number [facility] [address] [place] [address] * LIPASE (01/27/2025 5:37 PM DIRECTOR LEARNING AND DEVELOPMENT)ComponentValueRef RangeTest MethodAnalysis Time Performed AtPathologist MfooaaqgoQQZMHV53.013.0 - 60.0 IU/L103/30/2024 6:03 PM [facility] LABORATORYSpecimen (Source)Anatomical Location / LateralityCollection Method / VolumeCollection TimeReceived TimeBloodBLOOD SPECIMEN / UnknownVenipuncture / Tfpbcff8401/27/2025 5:37 PM CST01/27/2025 5:40 PM DIRECTOR LEARNING AND DEVELOPMENT Narrative Authorizing ProviderResult TypeResult StatusDenia Ahmadi PACHEMISTRY Final ResultPerforming OrganizationAddressCity/State/ZIP CodePhone Number [facility] [address] [place] [address] * HEPATIC FUNCTION PANEL (01/27/2025 5:37 PM DIRECTOR LEARNING AND DEVELOPMENT)ComponentValueRef RangeTest MethodAnalysis TimePerformed AtPathologist SignatureALBUMIN4.14.0 - 4.9 g/dL 01/27/2025 6:03 PM [facility] LABORATORYPROTEIN,TOTAL7.26.0 - 8.0 g/dL01/27/2025 6:03 PM [facility] BILIRUBIN,TOTAL0.30.0 - 1.2 mg/dL01/27/2025 6:03 PM [facility] LABORATORYBILIRUBIN,DIRECT0.10.0 - 0.2 mg/dL01/27/2025 6:03 PM [facility] LABORATORYBILIRUBIN,INDIRECT0.20.2 - 0.8 mg/dL 01/27/2025 6:03 PM [facility] LABORATORYALK [id number] - 104 IU/L103/30/2024 6:03 PM [facility] LABORATORYALT (SGPT)10 10 - 35 IU/L103/30/2024 6:03 PM [facility] LABORATORYAST (SGOT)1910 - 35 IU/L103/30/2024 6:03 PM [facility] Specimen (Source)Anatomical Location / LateralityCollection Method / Volume Collection TimeReceived TimeBloodBLOOD SPECIMEN / UnknownVenipuncture / Xpfomvt1001/27/2025 5:37 PM CST01/27/2025 5:40 PM DIRECTOR LEARNING AND DEVELOPMENT Narrative Authorizing ProviderResult TypeResult StatusAnna Sandra Prenevost PACHEMISTRY Final ResultPerforming OrganizationAddressCity/State/ZIP CodePhone Number [facility] [address] [place] [address] * BASIC METABOLIC PANEL (01/27/2025 5:37 PM DIRECTOR LEARNING AND DEVELOPMENT)ComponentValueRef RangeTest MethodAnalysis TimePerformed AtPathologist RclxhtspcPKAPDH153945 - 145 mmol/L 01/27/2025 6:03 PM [facility] LABORATORYPOTASSIUM3.83.5 - 5.1 mmol/L103/30/2024 6:03 PM [facility] KWNTINPCECACICYOVH21448 - 107 mmol/L103/30/2024 6:03 PM [facility] LABORATORYCO2,TOTAL23 22 - 29 mmol/L103/30/2024 6:03 PM [facility] LABORATORYANION EMI173 - 18103/30/2024 6:03 PM [facility] YHJHUMASSMAMVJATI71 70 - 99 mg/dL01/27/2025 6:03 PM [facility] LABORATORYCALCIUM 9.08.8 - 10.4 mg/dL01/27/2025 6:03 PM [facility] Comment: Reference ranges for this test were updated on 12/18/2023 to reflect our healthy population more accurately. Reference range changes are not retroactively applied to results, but previous results using the same methodology can be interpreted in the context of the new reference range. BUN66 - 20 mg/dL01/27/2025 6:03 PM [facility] CREATININE0.520.50 - 0.90 mg/dL01/27/2025 6:03 PM [facility] LABORATORYBUN/CREAT ULSBK3198 - 6:03 PM [facility] LABORATORYeGFR>90>90 mL/min/1.89v50201/27/2025 6:03 PM [facility] LABORATORYComment:As of 04/26/2021, eGFR is calculated by the CKD-EPI creatinine equation without race adjustment. ??eGFR can be influenced by muscle mass, exercise, and diet. ??The reported eGFR is an estimation onlyand is only applicable if the renal function is stable.Specimen (Source)Anatomical Location / LateralityCollection Method / VolumeCollection TimeReceived TimeBloodBLOOD SPECIMEN / UnknownVenipuncture / Pbjhfoz1601/27/2025 5:37 PM CST01/27/2025 5:40 PM DIRECTOR LEARNING AND DEVELOPMENT Narrative Authorizing ProviderResult TypeResult StatusDenia Flores Prenevost PACHEMISTRY Final ResultPerforming OrganizationAddressCity/State/ZIP CodePhone Number [facility] [address] [place] [address] * LC HCV ANTIBODY RFX TO QUANT PCR (04/21/2022 3:08 PM DIRECTOR LEARNING AND DEVELOPMENT)ComponentValueRef RangeTest MethodAnalysis TimePerformed AtPathologist SignatureHCV AbNon ReactiveNon Zobpdeer03/14/2023 1:09 PM [facility] [place] [facility])Specimen (Source)Anatomical Location / Laterality Collection Method / VolumeCollection TimeReceived TimeBloodBLOOD SPECIMEN / UnknownVenipuncture / Pdxpxck6304/21/2022 3:08 PM CST04/21/2022 3:11 PM DIRECTOR LEARNING AND DEVELOPMENT Narrative [facility] [place] [facility]) - 04/25/2022 1:09 PM CDT Performed at: 01 - [facility] [address] ??[id number] Design Checker: Rios Byrnes MD, Phone: ??[phone] Authorizing ProviderResult TypeResult StatusStkinza Stubbs NPLABORATORYFinal ResultPerforming OrganizationAddressCity/State/ZIP CodePhone Number [facility] [place] [facility] ([facility]) [address] [place] [address] * ANTI HIV 1/2 (10/12/2014 10:42 AM CDT)ComponentValueRef RangeTest Method Analysis TimePerformed AtPathologist SignatureHIV-1/HIV-2 ANTIBODYNon-Reactive Non-Reactive 10/12/2014 3:48 PM CDTALW[facility] LABORATORYSpecimen (Source)Anatomical Location / LateralityCollection Method / VolumeCollection TimeReceived TimeBlood specimen (specimen)BLOOD SPECIMEN / UnknownNon-Blood / Wksuefw3110/12/2014 10:42 AM CDT10/12/2014 10:42 AM CDT Narrative [facility] - 10/12/2014 3:48 PM CDT HIV-1 p24 and HIV-1/HIV-2 Ab not detected Authorizing ProviderResult TypeResult StatusJecourtney Mane MDSEND OUTS Final ResultPerforming OrganizationAddressCity/State/ZIP CodePhone Number [facility] [address] [place] [address], from Last 3 Months or Most Recently Relevant to Health Maintenance Insurance * Guarantor: Tony Chaves FAccount TypeRelation to PatientDate of BirthPhone Billing AddressPersonal/ZmveugCcmc46/18/2006 [address] [place] [address] * Guarantor: Tony Chaves Jannie TypeRelation to PatientDate of BirthPhone Billing AddressPersonal/PbrezzByvz29/18/2006 [phone] [place] [id number] MemberSubscriberPlan / Payer (Effective 2025-Present)Name:Tony Chaves Relation to Subscriber:SelfName:Tony Chaves Payer ID:Not on file Group ID:Not on file Type:Not on file Address: FOR [employer] * Guarantor: Mohan CARPENTER TypeRelation to PatientDate of BirthPhone Billing AddressPersonal/FamilyMother [phone] [place] [address] * Guarantor: Juanmargarito DexterJose TypeRelation to PatientDate of BirthPhone Billing AddressPersonal/KheyfxFefzow99/12/1986 [phone] [place] [address] Advance Directives * Full Code (Latest Code Status on File) Date ActivatedDate KyiozwrgeeaGbfrpxog33/14/2022 12:27 PM12/26/2021 6:02 PM QuestionAnswerCommentsCode Status Discussion:* Unable to Assess Preferences, Provider to review later Care Teams Team MemberRelationshipSpecialtyStart DateEnd Date Mikayla Stubbs NP [address] [facility] [place] [address] PCP - GeneralNurse Practitioner - Family03/29/20
[2025-02-03 18:57] LABS: Ur HCG Qualitative* Negative (Negative)
[2025-02-03] MEDS: KETOROLAC 10 MG TABLET PO (19:02)
[2025-02-03] MEDS: ONDANSETRON ODT 4 MG TAB PO (19:02)
[2025-02-03 19:03] LABS: Hematocrit* 40.3 % (33.0-51.0); Hemoglobin* 13.7 gm/dL (12.0-16.0); Immature Granulocytes Abs Auto 0.01 K/uL (0.00-0.30); Immature Granulocytes Pct Auto 0.2 %; Mean Corpuscular HGB Conc 34 gm/dL (32-36); Mean Corpuscular Hemoglobin 27 pg (26-34); Mean Corpuscular Volume 80 fL (80-100); RDW Coefficient of Variation % 13.1 % (11.5-15.5); Red Blood Count* 5.01 m/uL (4.00-5.20); White Blood Count* 6.45 K/uL (4.50-11.00)
[2025-02-03 19:12] LABS: Lymphocytes Absolute Auto 2.90 K/uL (0.90-2.90); Slide Review Reflex No
== END 2025-02-03 20:32 | disposition home or self-care (01) ==
PROVIDERS: Emergency Provider Family Medicine
DX: I88.0 Nonspecific mesenteric lymphadenitis (principal); M53.3 Sacrococcygeal disorders, not elsewhere classified; R10.31 Right lower quadrant pain
CPT/HCPCS: 36415; 80048; 81001; 81003; 81025; 85025; 86140; 87086; 96374; 96375; 99284; A9270; J1885; J2405; J7030